=== PATIENT | male | born 1945 | race Caucasian/White ===

== ENCOUNTER 2018-10-12 00:58 | Day surgery (SDC) | payer MEDICARE, OTHER ==
[2018-10-12] VITALS (8 sets, daily range): BP systolic 118–130; BP diastolic 74–89
[~2018-10-12] VITALS: Ht 185.4 cm; Wt 97.5 kg
[~2018-10-12 00:58] MED LIST: ACE325 PO; B CO1TAB2 PO; BIS10S PR; BLINK EYE DROPS OU; CALC-856 PO; CALC200 PO; CELE-1 PO; COL0.6 PO; CYAN50003 PO; ENO40I SQ; FEBU80TA3 PO; FERR-1 PO; GLUC-232 PO; LOR5/325 PO; LOR7.5/325 PO; LOSA-37 PO; METAMUCIL; MOM PO; NAPR220C12 PO; OMEG-96 PO; OMEP-218 PO; OXY10 PO; PROTANDIM PO; PSYL575P5 PO; RIVA10TA PO; THIA100T2 PO; [UNRECOGNIZED DRUG - CODE] PO; [UNRECOGNIZED DRUG - OTHER] PO
[2018-10-12] MEDS ORDERED: CELECOXIB 200 MG CAP PO ONE (06:00)
[2018-10-12] MEDS ORDERED: MIDAZOLAM 2 MG/2 ML VIAL IVP PRN (06:00)
[2018-10-12] MEDS ORDERED: LIDOCAINE/SOD BICARB 8.4% SYR ID ONE (06:00)
[2018-10-12] MEDS ORDERED: NORMOSOL R SOLN(*) 1000 ML BAG 1,000 ML IV PRN (06:00)
[2018-10-12] MEDS ORDERED: FAMOTIDINE 20 MG TAB PO ONE (06:00)
[2018-10-12] MEDS ORDERED: ceFAZolin(*) 2GM/D5W 50ML 50 ML IVPB ONE (06:00)
[2018-10-12] MEDS ORDERED: fentaNYL CITR 250 MCG/5 ML AMP ONE (06:39)
[2018-10-12] MEDS ORDERED: LIDOCAINE 2% IV 100 MG/5ML SYR ONE (06:40)
[2018-10-12] MEDS ORDERED: ROPIVACAINE 0.2% 20 ML VIAL ONE (06:41)
[2018-10-12] MEDS ORDERED: PROPOFOL EMUL(*) 10MG/ML 20 ML 20 ML ONE ×2 (06:41→08:10)
[2018-10-12] MEDS ORDERED: DEXAMETHASONE SOD 4 MG/ML VIAL ONE (06:53)
[2018-10-12] MEDS ORDERED: ONDANSETRON 4 MG/2 ML VIAL ONE (06:54)
[2018-10-12] MEDS ORDERED: KETAMINE HCL 200 MG/20 ML MDV ONE (07:17)
[2018-10-12] MEDS ORDERED: fentaNYL CITR 100 MCG/2 ML AMP ONE ×3 (07:56→09:21)
[2018-10-12] MEDS ORDERED: HYDR-653 PO (08:43)
[2018-10-12] MEDS ORDERED: APAP/HYDROCODONE 325/5 TAB ONE (09:23)
--- NOTE | 2018-10-12 09:31 | OPERATIVE REPORT 1 ---
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 PROCEDURE PERFORMED 1. Arthoplasty with prosthetic replacement, lunate. 2. Interposition arthroplasty , intercarpal or carpometacarpal joints. 3. Anesthetic nerve resection. 4. Removal of osteophytes and distal radius chondroplasty. FINDINGS The patient had severe cartilage damage throughout the proximal row of the entire wrist and irritation associated with this and so therefore was amenable for a arthroplasty of the capitate. ESTIMATED BLOOD LOSS Minimal. DRAINS None. COMPLICATIONS None. IMPLANTS Arthrosurface capitate resurfacing implant which was the large one with a 15 mm x 35 x 23. SPECIMENS None. TOURNIQUET TIME About 77 minutes. INDICATIONS AND HISTORY This patient is a 72-year-old male who presented to my clinic for evaluation of left wrist pain and irritation going on for some time. He had had significant amount of pain and irritation and some deviation associated with this and arthritic changes where he could not move it, and so he wanted to go ahead with a proximal row carpectomy as well as a arthrosurface of the capitate to try to get him some motion. He understood that his only other option was fusion of the wrist and so therefore there was no guarantee this makes him better but should give him some more relief associated with it. DESCRIPTION OF PROCEDURE As the patient was brought in the operating room, he and the procedure were both verified. He was placed supine on the operating table and induced and intubated by anesthesia. The left wrist was then prepped and draped in the usual fashion. A timeout was observed, verifying the correct patient and procedure. The standard incision was made over the dorsal aspect of the wrist. It was taken through the skin and subcutaneous tissue and then was identified to be the distal radius and then the fourth dorsal compartment. I was then able to go through the fourth dorsal compartment and then next, I moved the extensor tendons out to the ulnar side in order to complete the surgery itself. I then went through the dorsal capsule. 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 We resected a lot of synovium associated with this and then went down to the proximal row. Once we went down to the proximal row, I identified the capitate where the lunate was pretty much supposed to be and then we identified the lunate. I was able to remove the lunate, unfortunately this came out very piecemeal secondarily due to the fact that the lunate was very fragile and was not a very solid bone at this point. Once I was able to remove this, I then was able to remove the triquetrum pretty much in whole on that side. There was a couple of little bony fragments that were left over that we had to remove, but otherwise that came out very well and had no signs of problems associated with this. I then turned to the scaphoid and I was able to cut the scaphoid in half and then was able to then remove the proximal part of the scaphoid without any major difficulty. The distal pole was really socked in this area, and so after careful dissection and sharp dissection, I was able to remove this without any major difficulty. Once I was able to do this, I was then able to remove all of the proximal row and then get a good look at the capitate itself. Once I had a good look at the capitate and then irrigated with copious amounts of saline, I then drilled the pin straight through the middle portion of the capitate using the Arthrosurface set. This was then followed by reaming the proximal pole. Once we verified on C-arm that it was in good position, I then was able to drill the central portion and then put in the standard screw into the area for the 15 mm screw. This was then followed by placement of the posterior reamer where I was able to ream posteriorly and then do the trial after we measured it to the largest size, and then was able to put the trial in and this looked good on x-rays and had good excellent motion associated with this, so therefore this was the final component chosen. Once I did this, I then irrigated again with copious amounts of saline, removed any further bone fragments, rongeured off any large pieces associated with the capitate, and then bone grafted the capitate in order to try and fill in the bone where there was a small cyst associated with this area. This screw did have good fixation associated with it through. I then put in the final prosthesis without any difficulty and then took final C-arm images, verified that it was in great position, printed those off, and then irrigated again and then closed the capsule using a 4-0 FiberWire. This was then followed by a 4-0 FiberWire in the extensor retinaculum and then I irrigated again and then closed the skin with a 3-0 Vicryl. This was then followed by 4-0 Monocryl in the skin with the ends tied inside and then reanesthetized with Ropivacaine, dressed with Steri-Strips, gauze 4x4's and a volar and dorsal splint and then the patient was awakened, extubated and transferred to the PACU in stable condition after we let down the tourniquet just under 80 minutes. ROYCE
== END 2018-10-12 09:50 | disposition home or self-care (01) ==
LOC: OR 00:58
PROVIDERS: ATTEND Orthopaedic Surgery
DX: M19.032 Primary osteoarthritis, left wrist (principal); M24.232 Disorder of ligament, left wrist; I10 Essential (primary) hypertension; F17.200 Nicotine dependence, unspecified, uncomplicated
CPT/HCPCS: 25444; 25447; 76000; A4565; A9270; C1776; J1100; J2001; J2405; J2704; J2795; J3010; J3490; J0690